=== PATIENT | female | born 1965 | race Caucasian/White ===

== ENCOUNTER 2021-06-12 10:49 | Emergency (ER) | payer BC | END 2021-06-12 12:22 | disposition home or self-care (01) | LOC: ER1 10:49 | DX: S50.11XA Contusion of right forearm, initial encounter (principal); E10.9 Type 1 diabetes mellitus without complications; E78.5 Hyperlipidemia, unspecified; I10 Essential (primary) hypertension; W22.8XXA Striking against or struck by other objects, initial encounter; Y92.89 Other specified places as the place of occurrence of the external cause; Y99.0 Civilian activity done for income or pay | CPT/HCPCS: 73090; 99283 ==